=== PATIENT | male | born 1975 | race Two or more races ===

== ENCOUNTER 2021-07-04 11:43 | Emergency (ER) | payer SELFPAY ==
[~2021-07-04] VITALS: Ht 165.1 cm; Wt 118.2 kg
[2021-07-04 16:39] VITALS: BP 141/77
== END 2021-07-04 17:19 | disposition home or self-care (01) ==
LOC: EMS 11:47
DX: I83.892 Varicose veins of left lower extremity with other complications (principal)
CPT/HCPCS: 99281; Z7502